=== PATIENT | female | born 1960 | race Two or more races ===

== ENCOUNTER 2024-09-15 17:28 | Inpatient (IN) | payer OTHER ==
[2024-09-15 18:09] VITALS: BMI 27.4
[2024-09-15] MEDS ORDERED: Ondansetron PF 4 MG/2 ML Vial IVP PRN (18:23)
[2024-09-15] MEDS ORDERED: Labetalol HCl 100 MG/20 ML VIAL SLOW IVP PRN (18:29)
[2024-09-15] MEDS: Atorvastatin Calcium 40 MG TAB PO SCH (21:22)
[2024-09-15] MEDS: Acetaminophen 325 MG TAB PO PRN (21:22)
[2024-09-15] MEDS: Carvedilol 6.25 MG TAB PO SCH (21:22)
[2024-09-15] MEDS: Famotidine/PF 20 mg/2ml Vial SLOW IVP SCH (21:23)
[2024-09-16 04:38] LABS: #Basophils 0.04 10x3/uL (0.0-0.2); %Basophils 0.5 % (0.0-1.0); %Eosinophils 3.7 % (0.0-10.0); %Lymphocytes 18.5 % (21.0-51.0); %Monocytes 9.3 % (0.0-10.0); %Neutrophils 67.7 % (42.0-75.0); Hematocrit 32.1 % (36.0-47.0); Hemoglobin 10.1 g/dL (12.0-16.0); Mean Corpuscular HGB CONC 31.5 g/dL (32.0-36.0); Mean Corpuscular Hemoglobin 27.2 pg (27.0-31.0); Mean Corpuscular Volume 86.3 fL (78.0-98.0); Mean Platelet Volume 10.5 fL (7.4-10.4); Platelet Count 230 10x3/uL (130-400); RBC Distribution Width 14.6 % (11.5-14.5); Red Blood Cell (RBC) Count 3.72 mill/uL (4.20-5.40)
[2024-09-16 04:45] LABS: Anion Gap 15 mmol/L (10-20); BUN (Urea Nitrogen) 26 mg/dL (9.8-20.1); Calc. Creatinine Clearance 55 mL/min (70-130); Carbon Dioxide 26 mmol/L (23-31); Chloride 104 mmol/L (98-107); Estimated GFR 42; Glucose 112 mg/dL (80-115); Potassium 4.9 mmol/L (3.5-5.1); Sodium 140 mmol/L (136-145)
[2024-09-16] MEDS: Furosemide 40 MG (4 mL) VIAL SLOW IVP SCH (05:25)
[2024-09-16] MEDS: Aspirin 81 mg Enteric Coated Tablet PO SCH (09:26)
[2024-09-16] MEDS: Carvedilol 6.25 MG TAB PO SCH (09:27)
[2024-09-16] MEDS: Albumin 25% 25 GM (100 mL) BOT IVPB SCH (12:53)
[2024-09-17 04:31] LABS: #Basophils 0.04 10x3/uL (0.0-0.2); %Basophils 0.6 % (0.0-1.0); %Eosinophils 4.1 % (0.0-10.0); %Lymphocytes 18.1 % (21.0-51.0); %Monocytes 10.1 % (0.0-10.0); %Neutrophils 66.8 % (42.0-75.0); Hematocrit 30.7 % (36.0-47.0); Hemoglobin 9.7 g/dL (12.0-16.0); Mean Corpuscular HGB CONC 31.6 g/dL (32.0-36.0); Mean Corpuscular Hemoglobin 27.2 pg (27.0-31.0); Mean Platelet Volume 10.6 fL (7.4-10.4); Platelet Count 228 10x3/uL (130-400); RBC Distribution Width 14.4 % (11.5-14.5); Red Blood Cell (RBC) Count 3.57 mill/uL (4.20-5.40)
[2024-09-17 04:58] LABS: Anion Gap 16 mmol/L (10-20); BUN (Urea Nitrogen) 36 mg/dL (9.8-20.1); Calc. Creatinine Clearance 51 mL/min (70-130); Calcium 8.9 mg/dL (7.8-10.44); Carbon Dioxide 23 mmol/L (23-31); Chloride 104 mmol/L (98-107); Estimated GFR 38; Glucose 125 mg/dL (80-115); Potassium 3.6 mmol/L (3.5-5.1); Sodium 139 mmol/L (136-145)
[2024-09-17] MEDS: Ipratropium/Albuterol 3 ML NEB NEB PRN (05:20)
[2024-09-17] MEDS: Docusate 100 MG CAP PO PRN (05:53)
[2024-09-17] MEDS: Polyethylene Glycol 3350 17 GM Packet PO SCH (09:33)
[2024-09-17 13:04] VITALS: BP 137/89; TEMP 98.6
[2024-09-17] MEDS ORDERED: Losartan 25 MG TAB PO SCH (15:00)
[2024-09-17] MEDS ORDERED: Empagliflozin 10 MG TAB PO SCH (15:00)
[2024-09-17] MEDS ORDERED: Sodium Chloride 0.9% 1,000 ML IV SCH (15:00)
[2024-09-18] MEDS ORDERED: Famotidine 20 MG TAB PO SCH (09:00)
[2024-09-18] MEDS ORDERED: Empagliflozin 10 MG TAB PO SCH (09:00)
[2024-09-18] MEDS ORDERED: Losartan 25 MG TAB PO SCH (09:00)
== END 2024-09-17 17:19 | disposition left against medical advice (07) | DRG 291 ==
LOC: 2NO 17:28
PROVIDERS: ADMIT Internal Medicine; ATTEND Internal Medicine
PROC: 30233J1 Transfusion of Nonautologous Serum Albumin into Peripheral Vein, Percutaneous Approach (ICD-10-PCS; principal; 2024-09-15)
DX: I13.0 Hypertensive heart and chronic kidney disease with heart failure and stage 1 through stage 4 chronic kidney disease, or unspecified chronic kidney disease (principal); I50.43 Acute on chronic combined systolic (congestive) and diastolic (congestive) heart failure; N17.9 Acute kidney failure, unspecified; J44.9 Chronic obstructive pulmonary disease, unspecified; E78.5 Hyperlipidemia, unspecified; F17.210 Nicotine dependence, cigarettes, uncomplicated; I08.3 Combined rheumatic disorders of mitral, aortic and tricuspid valves; N18.9 Chronic kidney disease, unspecified; E86.0 Dehydration; Z79.899 Other long term (current) drug therapy; Z53.29 Procedure and treatment not carried out because of patient's decision for other reasons
CPT/HCPCS: 36415; 80048; 83735; 85025; 93306; 93798; 94640; J1940; J3490; J7620; P9047